=== PATIENT | male | born 1965 | race Caucasian/White ===

== ENCOUNTER 2016-11-29 18:56 | Emergency (ER) | payer SELFPAY ==
[2016-11-29 19:04] VITALS: BP 112/90
--- NOTE | 2016-11-29 19:22 | PHYS DOC ---
Past Medical History Past Medical History: Bipolar, Seizure Additional Past Surgical Histo: HERNIA,RECONSTRUCTION OF JAW Alcohol Use: Heavy Additional Information: DRINKS ETOH EVERYDAY, TODAY HAD 5-25OZ CANS OF BEER Drug Use: None Adult General Chief Complaint Chief Complaint: ALCOHOL INTOXICATION HPI HPI Patient is a 51 year old male who presents with alcohol intoxication. The patient states he drank 5 large beers today. He states he was attempting to hitchhike [place] but was picked up by the police. They were concerned because he fell over while they were speaking with him. He denies any history of trauma or injury. Denies suicidal or homicidal ideation, denies headache, chest pain, shortness of breath, abdominal pain. He is trying to get to [place]. Review of Systems Review of Systems Constitutional: Denies fever or chills HENT: Denies nasal congestion or sore throat Respiratory: Denies cough or shortness of breath Cardiovascular: Denies chest pain GI: Denies abdominal pain, nausea, vomiting Musculoskeletal: Denies back pain or joint pain Integument: Denies rash or skin lesions Neurologic: Denies headache Allergies Allergies Allergies Coded Allergies Type Severity Reaction Last Updated Verified No Known Drug Allergies 11/29/16 No Physical Exam Physical Exam Constitutional: Well developed, well nourished, no acute distress, non-toxic appearance. poor hygiene. HENT: Normocephalic, atraumatic, bilateral external ears normal, oropharynx moist, nose normal. Eyes: conjunctiva normal, no discharge. Cardiovascular: no edema. Lungs & Thorax: no respiratory distress. Abdomen: nondistended. Skin: Warm, dry, no erythema, no rash. Extremities: No deformity. Neurologic: Alert and oriented X 3, moves all extremities. Psychologic: Affect normal, judgement normal, mood normal. Current Patient Data Vital Signs Vital Signs Date Time Temp Pulse Resp B/P Pulse Ox O2 Delivery O2 Flow Rate FiO2 11/29/16 19:04 98.0 92 22 112/90 100 Room Air 98.0 EKG EKG [] Radiology/Procedures Radiology/Procedures [] Course & Med Decision Making Course & Med Decision Making Pertinent Labs and Imaging studies reviewed. (See chart for details) The patient is here with alcohol intoxication but has no complaints. He is A& Ox3, ambulates with steady gait, not suicidal. He would like to be discharged & does not want further ED evaluation. He declines list of homeless shelters. He plans to go to [facility] when he is discharged. Recommend follow up with a primary care physician & consider trying to cut back on drinking. Come back for serious injury, hematemesis, seizure, otherwise worsening condition. Discharged home in stable condition. Dragon Disclaimer Dragon Disclaimer This electronic medical record was generated, in whole or in part, using a voice recognition dictation system. Departure Departure Impression: Primary Impression: Alcohol intoxication Disposition: 01 HOME, SELF-CARE Condition: STABLE Patient Instructions: Alcohol Intoxication, [id number] Additional Instructions: You were seen in the emergency department today for alcohol intoxication. You did not want to have any further medical treatment. Please try to avoid drinking in excess. Follow-up as needed with a primary care doctor in about a week. Come back for head injury, vomiting blood, withdrawal seizure, any otherwise worsening condition. TONIO REARDON MD Nov 29, 2016 19:22
== END 2016-11-29 19:50 | disposition home or self-care (01) ==
LOC: ER 18:56
DX: F10.129 Alcohol abuse with intoxication, unspecified (principal); F31.9 Bipolar disorder, unspecified; Y90.9 Presence of alcohol in blood, level not specified
CPT/HCPCS: 99284

== ENCOUNTER 2017-12-10 10:52 | Inpatient (IN) | payer SELFPAY ==
[2017-12-10] MEDS ORDERED: 0.9 % SODIUM CHLORIDE 10 ML DISP.SYRIN. IV (11:15)
[2017-12-10] MEDS: IV NORMAL SALINE 1000ML BAG 1,000 ML IV ×3 (11:20→19:57)
[2017-12-10 11:21] LABS: ADD MAN DIFF? NO
[2017-12-10 11:23] LABS: BASO # 0.1 x10^3/uL (0.0-0.2); BASO % 1 % (0-3); EOS # 0.1 x10^3/uL (0.0-0.7); EOS % 2 % (0-3); HEMATOCRIT 39.6 % (39.0-53.0); LYMPH # 2.3 x10^3/uL (1.0-4.8); LYMPH % 37 % (24-48); MEAN CORPUSCULAR HEMOGLOBIN 35 pg (25-35); MEAN CORPUSCULAR HGB CONC 35 g/dL (31-37); MEAN CORPUSCULAR VOLUME 98 fL (79-100); MONO # 0.5 x10^3/uL (0.0-1.1); MONO % 9 % (0-9); NEUT # 3.2 x10^3uL (1.8-7.7); NEUT % 51 % (31-73); PLATELET COUNT 271 x10^3/uL (140-400); RED BLOOD COUNT 4.04 x10^6/uL (4.30-5.70); WHITE BLOOD COUNT 6.2 x10^3/uL (4.0-11.0)
[2017-12-10 11:35] LABS: ANION GAP 8 (6-14); BLOOD UREA NITROGEN 11 mg/dL (8-26); CALCIUM 7.8 mg/dL (8.5-10.1); CARBON DIOXIDE 31 mmol/L (21-32); CHLORIDE 108 mmol/L (98-107); CREATININE 0.7 mg/dL (0.7-1.3); GFR 118.9; GLUCOSE 105 mg/dL (70-99); POTASSIUM 3.7 mmol/L (3.5-5.1); SODIUM 147 mmol/L (136-145)
[2017-12-10 11:40] LABS: ALBUMIN 3.4 g/dL (3.4-5.0); ALK PHOS 88 U/L (46-116); ALT (SGPT) 37 U/L (16-63); AST (SGOT) 58 U/L (15-37); DIRECT BILIRUBIN 0.1 mg/dL (0.0-0.2); LIPASE 260 U/L (73-393); MAGNESIUM 1.9 mg/dL (1.8-2.4); TOTAL BILIRUBIN 0.2 mg/dL (0.2-1.0); TOTAL PROTEIN 7.5 g/dL (6.4-8.2)
[2017-12-10] MEDS: MULTIVIT INFUSN,ADULT 4,VIT K 10 ML, THIAMINE 100 MG, FOLIC ACID 1 MG in IV NORMAL SALI... IV (11:42)
[2017-12-10 11:43] LABS: TROPONINI < 0.017 ng/mL (0.000-0.055)
[2017-12-10 11:44] LABS: SALIC 3.4 mg/dL (2.8-20.0)
[2017-12-10 11:46] LABS: ACETAMIN < 2 mcg/ml (10-30); ETHANOL 526 mg/dL (0-10)
[2017-12-10 11:47] LABS: NT-PRO BNP 24 pg/mL (0-124)
[2017-12-10 11:47] LABS: CKMB INDEX 0.8 % (0-4); CKMB MASS 5.3 ng/mL (0.0-3.6); CREATINE KINASE 705 U/L (39-308)
[2017-12-10] MEDS ORDERED: ACETAMINOPHEN 325 MG TABLET. PO (12:00)
[2017-12-10] MEDS ORDERED: ONDANSETRON PF 4 MG/2 ML VIAL. IV (12:00)
[2017-12-10] MEDS ORDERED: cloNIDine HCL 0.1 MG TABLET PO (13:15)
[2017-12-10] MEDS ORDERED: HALOPERIDOL LACTATE 5 MG/ML VIAL. IVP (13:15)
[2017-12-10] MEDS ORDERED: diphenhydrAMINE 50 MG/ML VIAL IVP (13:15)
[2017-12-10] MEDS: ENOXAPARIN 40 MG/0.4 ML SYRINGE. SQ (17:35)
[2017-12-10] MEDS: IV NORMAL SALINE 500ML BAG 500 ML IV (19:45)
[2017-12-10] MEDS ORDERED: NOREPINEPHRIN PREMIX 250 ML IV (20:00)
[2017-12-10] MEDS: LORazepam 1 MG TABLET PO (21:00)
[2017-12-10] MEDS: NICOTINE 14MG PATCH. TD (22:11)
[2017-12-11] MEDS: IV NORMAL SALINE 1000ML BAG 1,000 ML IV (06:08)
[2017-12-11] MEDS: LORazepam 1 MG TABLET PO ×2 (09:16→21:42)
[2017-12-11] MEDS: MULTIVIT INFUSN,ADULT 4,VIT K 10 ML, THIAMINE 100 MG, FOLIC ACID 1 MG in IV NORMAL SALI... IV (09:16)
[2017-12-11] MEDS: NICOTINE 14MG PATCH. TD (09:17)
[2017-12-11 15:15] LABS: MRSA BY PCR Negative (Negative)
[2017-12-11] MEDS: ENOXAPARIN 40 MG/0.4 ML SYRINGE. SQ (16:11)
[2017-12-16] MEDS ORDERED: FOLIC ACID 1 MG TABLET. PO (09:00)
[2017-12-16] MEDS ORDERED: MULTIVITAMIN with MINERAL TABLET. PO (09:00)
== END 2017-12-12 06:50 | disposition left against medical advice (07) | DRG 896 ==
LOC: ER 10:52 → 1 WEST ICU 11:57 → 5 SOUTH 22:30
DX: F10.129 Alcohol abuse with intoxication, unspecified (principal); G92 Toxic encephalopathy; Z59.0 Homelessness; Y90.8 Blood alcohol level of 240 mg/100 ml or more
CPT/HCPCS: 36415; 80048; 80076; 80329; 82553; 83690; 83735; 83880; 84484; 85025; 87641; 93005; G0480; J1650; J2060; J7030; J7040